=== PATIENT | male | born 1945 | race Caucasian/White ===

== ENCOUNTER → 2019-12-10 14:36 | Outpatient (CLI) | payer MEDICARE, SELFPAY ==
[2019-12-10 15:09] LABS: Chol/HDL Ratio 3.3 (1-3.5); Cholesterol 150 mg/dl (140-200); HDL Cholesterol 46 mg/dl (40-60); Triglycerides 99 mg/dl (30-150); VLDL Cholesterol 20 mg/dL (0-40)
[2019-12-10 15:20] LABS: Direct LDL Cholesterol 94.97 mg/dL (100-129)
[2019-12-10 15:40] LABS: Basophils # 0.1 K/mm3 (0-0.2); Basophils % 0.8 % (0.1-2.0); Eosinophils # 0.2 K/mm3 (0.0-0.4); Eosinophils % 2.4 % (0.1-12.0); Hematocrit 46.3 % (42.0-52.0); Hemoglobin 15.8 g/dL (14.1-18.0); Lymphocytes # 1.1 K/mm3 (0.7-4.5); Lymphocytes % 15.8 % (10-50); Mean Corpuscular HGB Conc 34.2 g/dL (31.8-35.4); Mean Corpuscular Hemoglobin 32.9 pg (27.0-31.2); Mean Corpuscular Volume 96.2 fl (80-94); Mean Platelet Volume 9.4 fl (7.4-10.4); Monocytes # 0.5 K/mm3 (0.1-1.0); Monocytes % 6.9 % (1.7-9.3); Neutrophils # 5.2 K/mm3 (1.8-7.8); Neutrophils % 74.2 % (37.0-80.0); Platelet Count 188 K/mm3 (142-424); Red Blood Count 4.81 M/mm3 (4.60-6.20); Red Cell Distribution Width 13.9 % (11.5-17.5)
[2019-12-12 10:59] LABS: PSA, Free 0.34 ng/mL; Prostate Specific Ag 0.9 ng/mL (0.0-4.0)
== END ==
PROVIDERS: Visit Provider Family Medicine
DX: E78.5 Hyperlipidemia, unspecified (principal); Z00.00 Encounter for general adult medical examination without abnormal findings; I48.20 Chronic atrial fibrillation, unspecified; L02.818 Cutaneous abscess of other sites; M51.16 Intervertebral disc disorders with radiculopathy, lumbar region; E66.9 Obesity, unspecified; R31.9 Hematuria, unspecified
CPT/HCPCS: 80061; 84153; 84154; 85025

== ENCOUNTER → 2020-11-28 06:29 | Outpatient (CLI) | payer MEDICARE, SELFPAY ==
--- NOTE | 2020-11-28 06:31 | CT_ITS ---
PROCEDURE: CT ABDOMEN PELVIS WO CON CLINICAL INDICATION: RLQ pain COMPARISON: No exams were available for comparison TECHNIQUE: Axial images obtained with sagittal and coronal reformats. All CT scans at the facility use one or more dose reduction, viz: automated exposure control, ma/kV adjustment per patient size (including targeted exams where dose is matched to indication, i.e. head), or iterative reconstruction technique. FINDINGS: LOWER THORAX: Coronary artery calcifications are present. ABDOMEN & PELVIS: Gallstones are noted. No focal liver lesion apparent. The spleen, adrenal glands, and pancreas has an unremarkable appearance. Duodenal diverticulum noted. No renal or ureteral calculus evident. 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 The definite measurements of the aneurysm are difficult to delineate but felt to be approximately [address] angiogram of the renal arteries may confirm this finding. Suspect right parapelvic renal cysts. Bowel interposition is present between the liver and the anterior abdominal wall on the right. No evidence of appendicitis. There is colonic diverticulosis. No evidence of diverticulitis. No intestinal obstruction or free air. There is a small umbilical hernia containing fat. Urinary bladder wall slightly thickened but may be due to nondistention. There are degenerative changes in the lumbar spine. No acute bony anomalies. IMPRESSION: 1. No acute finding. No evidence of appendicitis. 2. Cholelithiasis. 3. 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 angiogram of the renal arteries for confirmation. 4. Colonic diverticulosis. No evidence of diverticulitis. Dictated by: Greg Velazquez MD 11/28/2020 09:47 Greg Velazquez MD in [facility] 11/28/2020 09:47
== END ==
PROVIDERS: PCP Family Medicine; Visit Provider Family Medicine
DX: R10.9 Unspecified abdominal pain (principal)
CPT/HCPCS: 74176

== ENCOUNTER → 2020-12-09 07:17 | Outpatient (CLI) | payer MEDICARE, SELFPAY ==
--- NOTE | 2020-12-09 07:20 | CT_ITS ---
Procedure: CT ANGIO ABDOMEN CLINICAL HISTORY: aneurysm seen on CT Renal artery aneurysm COMPARISON: CT CT ABDOMEN PELVIS WO CON from 11/28/2020 TECHNIQUE: IV Contrast: 100ml Isovue 370 Axial images obtained with sagittal and coronal reformats. All CT scans at the facility use one or more dose reduction, viz: automated exposure control, ma/kV adjustment per patient size (including targeted exams where dose is matched to indication, i.e. head), or iterative reconstruction technique. FINDINGS: There is mild fusiform dilatation the distal aspect of the left main renal artery measuring up to 10 mm in diameter with some minimal atheromatous plaque. No evidence of aortic aneurysm. The right renal artery, celiac artery, and SMA have an unremarkable appearance. The iliac vessels are unremarkable. There is a mild amount of calcific plaque within the abdominal aorta and iliac vessels. There is mild thickening of the right minor fissure with elevation of the right hemidiaphragm. Coronary artery calcifications are present. There are gallstones present. The liver, spleen, adrenal glands, and kidneys have an unremarkable appearance other than the small left renal artery aneurysm. At the junction of the body and tail the pancreas there is a 6 mm hypodensity which may be due to small pancreatic lesion versus partial volume averaging artifact. Suggest 3 month follow-up with pancreatic protocol to confirm stability. No intestinal obstruction or free air. No evidence of appendicitis. There is mild thickening of the urinary bladder wall which could be due to nondistention. Central prostate calcifications are present. The prostate is slightly prominent at 4.5 cm. There is colonic diverticulosis but no evidence of diverticulitis. Small umbilical hernia is present containing fat. There are degenerative changes in the lumbar spine and hips. IMPRESSION: 1. Mild fusiform dilatation of the distal aspect of the left main renal artery at 10 mm. 2. Cholelithiasis. 3. 6 mm hypodensity of the junction of the body and tail the pancreas indeterminate. Suggest 3 month follow-up with pancreatic protocol to confirm stability. 4. Colonic diverticulosis Dictated by: Greg Velazquez MD 12/11/2020 11:16 Greg Velazquez MD in [facility] 12/11/2020 11:16
[2020-12-09 08:07] LABS: Blood Urea Nitrogen 16 mg/dl (9-20); Estimated Glomerular Filt Rate 95 ml/min (>60); GFR (African American) 115 ML/MIN (>60)
== END ==
PROVIDERS: PCP Family Medicine; Visit Provider Family Medicine
DX: I72.2 Aneurysm of renal artery (principal)
CPT/HCPCS: 36415; 74175; 82565; 84520; Q9967

== ENCOUNTER → 2021-09-07 12:50 | Outpatient (CLI) | payer MEDICARE, SELFPAY ==
[2021-09-07 14:55] LABS: Basophils # 0.1 K/mm3 (0-0.2); Basophils % 1.2 % (0.1-2.0); Eosinophils # 0.2 K/mm3 (0.0-0.4); Eosinophils % 4.3 % (0.1-12.0); Hematocrit 48.9 % (42.0-52.0); Hemoglobin 15.9 g/dL (14.1-18.0); Lymphocytes # 1.1 K/mm3 (0.7-4.5); Lymphocytes % 19.7 % (10-50); Mean Corpuscular HGB Conc 32.5 g/dL (31.8-35.4); Mean Corpuscular Hemoglobin 32.6 pg (27.0-31.2); Mean Corpuscular Volume 100.2 fl (80-94); Monocytes # 0.4 K/mm3 (0.1-1.0); Monocytes % 8.1 % (1.7-9.3); Neutrophils # 3.6 K/mm3 (1.8-7.8); Neutrophils % 66.6 % (37.0-80.0); Platelet Count 199 K/mm3 (142-424); Red Blood Count 4.88 M/mm3 (4.60-6.20); Red Cell Distribution Width 13.6 % (11.5-17.5); White Blood Count 5.3 K/mm3 (4.8-10.8)
[2021-09-07 15:50] LABS: Alanine Aminotransferase 12 U/L (12-78); Albumin Level 3.9 g/dl (3.5-5.0); Albumin/Globulin Ratio 1.5 (1.1-1.8); Alkaline Phosphatase 101 U/L (38-126); Anion Gap 12.1 mEq/L (5-15); Aspartate Amino Transferase 20 U/L (17-59); Bilirubin,Total 1.1 mg/dl (0.2-1.3); Blood Urea Nitrogen 17 mg/dl (9-20); Calcium 8.8 mg/dl (8.4-10.2); Carbon Dioxide 23 mmol/L (22.0-30.0); Chloride 106 mmol/L (98-107); Chol/HDL Ratio 3.8 (1-3.5); Cholesterol 156 mg/dl (140-200); Estimated Glomerular Filt Rate 110 ml/min (>60); GFR (African American) 133 ML/MIN (>60); Globulin 2.6 g/dL (1.3-3.2); Glucose 108 mg/dl (74-100); HDL Cholesterol 41 mg/dl (40-60); Potassium 4.1 mmoL/L (3.5-5.1); Sodium 137 mmol/L (136-145); Total Protein,Serum 6.5 g/dl (6.3-8.2); Triglycerides 84 mg/dl (30-150); VLDL Cholesterol 17 mg/dL (0-40)
[2021-09-07 16:02] LABS: Direct LDL Cholesterol 86.71 mg/dL (100-129)
[2021-09-07 16:22] LABS: Prostate Specific Ag Screen 1.4 ng/ml (0.0-4.0); Thyroid Stimulating Hormone 1.23 uIU/mL (0.465-4.68)
== END ==
PROVIDERS: Visit Provider Family Medicine
DX: I48.20 Chronic atrial fibrillation, unspecified (principal); I10 Essential (primary) hypertension; Z12.5 Encounter for screening for malignant neoplasm of prostate; Z00.00 Encounter for general adult medical examination without abnormal findings
CPT/HCPCS: 80053; 80061; 84443; 85025; G0103

== ENCOUNTER → 2021-11-26 13:53 | Outpatient (CLI) | payer MEDICARE, SELFPAY ==
[2021-11-26 13:13] LABS: Adenovirus,PCR Not Detected (NotDetected); Bordetella Pertussis Not Detected (NotDetected); Chlamydophila Pneumoniae, PCR Not Detected (NotDetected); Coronavirus 19, PCR Not Detected (NotDetected); Coronavirus 229E Not Detected (NotDetected); Coronavirus NL63 Not Detected (NotDetected); Coronavirus OC43 Not Detected (NotDetected); Coronovirus HKU1,PCR Not Detected (NotDetected); Human Metapneumovirus Not Detected (NotDetected); Influenza A, PCR Not Detected (NotDetected); Influenza AH1, 2009 Not Detected (NotDetected); Influenza AH1, PCR Not Detected (NotDetected); Influenza AH3,PCR Not Detected (NotDetected); Influenza B, PCR Not Detected (NotDetected); Mycoplasma Pneumoniae, PCR Not Detected (NotDetected); Parainfluenza 1, PCR Not Detected (NotDetected); Parainfluenza 2, PCR Not Detected (NotDetected); Parainfluenza 3, PCR Not Detected (NotDetected); Parainfluenza 4, PCR Not Detected (NotDetected); Respiratory Syncytial Virus Not Detected (NotDetected)
[2021-11-26 18:05] LABS: Rhinovirus/Enterovirus Detected (NotDetected)
== END ==
PROVIDERS: PCP Family Medicine; Visit Provider Family Medicine
DX: R09.81 Nasal congestion (principal); B34.8 Other viral infections of unspecified site; Z20.822 Contact with and (suspected) exposure to COVID-19; J98.8 Other specified respiratory disorders
CPT/HCPCS: 87581; 87632; 87798; C9803; U0003; U0005

== ENCOUNTER → 2022-09-20 17:53 | Outpatient (CLI) | payer MEDICARE, SELFPAY ==
[2022-09-20 18:48] LABS: Basophils # 0.1 K/mm3 (0-0.2); Eosinophils # 0.2 K/mm3 (0.0-0.4); Eosinophils % 3.5 % (0.1-12.0); Hemoglobin 14.6 g/dL (14.1-18.0); Lymphocytes # 1.2 K/mm3 (0.7-4.5); Lymphocytes % 19.6 % (10-50); Mean Corpuscular HGB Conc 31.6 g/dL (31.8-35.4); Mean Corpuscular Hemoglobin 31.2 pg (27.0-31.2); Mean Corpuscular Volume 98.8 fl (80-94); Mean Platelet Volume 8.5 fl (7.4-10.4); Monocytes # 0.5 K/mm3 (0.1-1.0); Monocytes % 8.7 % (1.7-9.3); Neutrophils % 67.3 % (37.0-80.0); Platelet Count 193 K/mm3 (142-424); Red Blood Count 4.66 M/mm3 (4.60-6.20); Red Cell Distribution Width 13.5 % (11.5-17.5); White Blood Count 5.9 K/mm3 (4.8-10.8)
[2022-09-20 19:19] LABS: Chloride 103 mmol/L (98-107); Potassium 3.8 mmoL/L (3.5-5.1); Sodium 138 mmol/L (136-145)
[2022-09-20 19:21] LABS: Alanine Aminotransferase 12 U/L (12-78); Anion Gap 12.8 mEq/L (5-15); Aspartate Amino Transferase 21 U/L (17-59); Blood Urea Nitrogen 18 mg/dl (9-20); Carbon Dioxide 26 mmol/L (22.0-30.0); Estimated Glomerular Filt Rate 82 ml/min (>60); GFR (African American) 100 ML/MIN (>60)
[2022-09-20 19:22] LABS: Albumin Level 3.7 g/dl (3.5-5.0); Albumin/Globulin Ratio 1.5 (1.1-1.8); Alkaline Phosphatase 93 U/L (38-126); Bilirubin,Total 0.7 mg/dl (0.2-1.3); Calcium 8.2 mg/dl (8.4-10.2); Chol/HDL Ratio 3.3 (1-3.5); Cholesterol 140 mg/dl (140-200); Globulin 2.4 g/dL (1.3-3.2); Glucose 85 mg/dl (74-100); HDL Cholesterol 43 mg/dl (40-60); Total Protein,Serum 6.1 g/dl (6.3-8.2); Triglycerides 88 mg/dl (30-150); VLDL Cholesterol 18 mg/dL (0-40)
[2022-09-20 19:49] LABS: Direct LDL Cholesterol 90.06 mg/dL (100-129); Thyroid Stimulating Hormone 0.95 uIU/mL (0.465-4.68)
[2022-09-20 22:25] LABS: Prostate Specific Ag Screen 1.8 ng/ml (0.0-4.0)
== END ==
PROVIDERS: PCP Family Medicine; Visit Provider Family Medicine
DX: E78.5 Hyperlipidemia, unspecified (principal); Z12.5 Encounter for screening for malignant neoplasm of prostate; I48.20 Chronic atrial fibrillation, unspecified
CPT/HCPCS: 80053; 80061; 84443; 85025; G0103

== ENCOUNTER 2023-09-28 18:00 | Outpatient (CLI) | payer MEDICARE, SELFPAY ==
[2023-09-28 18:40] LABS: Basophils # 0.1 K/mm3 (0-0.2); Basophils % 1.2 % (0.1-2.0); Eosinophils # 0.2 K/mm3 (0.0-0.4); Eosinophils % 4.3 % (0.1-12.0); Hematocrit 44.4 % (42.0-52.0); Hemoglobin 14.4 g/dL (14.1-18.0); Lymphocytes # 1.2 K/mm3 (0.7-4.5); Lymphocytes % 23.9 % (10-50); Mean Corpuscular HGB Conc 32.5 g/dL (31.8-35.4); Mean Corpuscular Volume 101.7 fl (80-94); Mean Platelet Volume 9.6 fl (7.4-10.4); Monocytes # 0.5 K/mm3 (0.1-1.0); Monocytes % 9.6 % (1.7-9.3); Neutrophils # 2.9 K/mm3 (1.8-7.8); Neutrophils % 60.9 % (37.0-80.0); Platelet Count 204 K/mm3 (142-424); Red Blood Count 4.37 M/mm3 (4.60-6.20); Red Cell Distribution Width 13.6 % (11.5-17.5); White Blood Count 4.8 K/mm3 (4.8-10.8)
[2023-09-28 19:42] LABS: Hemoglobin A1C 5.7 % (4.0-6.0)
[2023-09-28 20:57] LABS: Alanine Aminotransferase 15 U/L (12-78); Albumin Level 3.5 g/dl (3.5-5.0); Albumin/Globulin Ratio 1.3 (1.1-1.8); Alkaline Phosphatase 103 U/L (38-126); Anion Gap 10.4 mEq/L (5-15); Aspartate Amino Transferase 22 U/L (17-59); Blood Urea Nitrogen 19 mg/dl (9-20); Calcium 8.9 mg/dl (8.4-10.2); Carbon Dioxide 23 mmol/L (22.0-30.0); Chloride 110 mmol/L (98-107); Estimated Glomerular Filt Rate 73 ml/min (>60); GFR (African American) 88 ML/MIN (>60); Globulin 2.6 g/dL (1.3-3.2); Glucose 102 mg/dl (74-100); Potassium 4.4 mmoL/L (3.5-5.1); Sodium 139 mmol/L (136-145); Total Protein,Serum 6.1 g/dl (6.3-8.2)
[2023-09-28 21:28] LABS: Prostate Specific Ag Screen 2.9 ng/ml (0.0-4.0); Thyroid Stimulating Hormone 0.91 uIU/mL (0.465-4.68)
[2023-09-30 11:17] LABS: Testosterone,Total 392 ng/dL (264-916)
== END 2023-09-28 23:59 | disposition home or self-care (01) ==
LOC: LAB.DROPOF 09-29 14:09
PROVIDERS: PCP Family Medicine; Visit Provider Family Medicine
DX: I10 Essential (primary) hypertension (principal); Z12.5 Encounter for screening for malignant neoplasm of prostate; R73.03 Prediabetes; I48.91 Unspecified atrial fibrillation
CPT/HCPCS: 80053; 83036; 84403; 84443; 85025; G0103

== ENCOUNTER 2024-07-02 10:45 | Outpatient (CLI) | payer MEDICARE, SELFPAY ==
[2024-07-02 19:20] LABS: Albumin Level 3.5 g/dl (3.5-5.0); Chloride 105 mmol/L (98-107); Sodium 134 mmol/L (136-145)
[2024-07-02 19:21] LABS: Potassium 4.5 mmoL/L (3.5-5.1)
[2024-07-02 19:23] LABS: Alanine Aminotransferase 18 U/L (12-78); Albumin/Globulin Ratio 1.3 (1.1-1.8); Alkaline Phosphatase 110 U/L (38-126); Anion Gap 8.5 mEq/L (5-15); Aspartate Amino Transferase 24 U/L (17-59); Bilirubin,Total 0.8 mg/dl (0.2-1.3); Blood Urea Nitrogen 19 mg/dl (9-20); Carbon Dioxide 25 mmol/L (22.0-30.0); Cholesterol 139 mg/dl (140-200); Estimated Glomerular Filt Rate 94 ml/min (>60); GFR (African American) 113 ML/MIN (>60); Globulin 2.6 g/dL (1.3-3.2); Total Protein,Serum 6.1 g/dl (6.3-8.2); Triglycerides 126 mg/dl (30-150); VLDL Cholesterol 25 mg/dL (0-40)
[2024-07-02 19:24] LABS: Calcium 8.8 mg/dl (8.4-10.2); Chol/HDL Ratio 4.2 (1-3.5); Glucose 105 mg/dl (74-100); HDL Cholesterol 33 mg/dl (40-60)
[2024-07-02 19:39] LABS: Basophils # 0.1 K/mm3 (0-0.2); Eosinophils # 0.2 K/mm3 (0.0-0.4); Eosinophils % 4.6 % (0.1-12.0); Hematocrit 43.3 % (42.0-52.0); Hemoglobin 14.5 g/dL (14.1-18.0); Lymphocytes # 1.1 K/mm3 (0.7-4.5); Lymphocytes % 20.2 % (10-50); Mean Corpuscular HGB Conc 33.5 g/dL (31.8-35.4); Mean Corpuscular Hemoglobin 32.4 pg (27.0-31.2); Mean Corpuscular Volume 96.9 fl (80-94); Monocytes # 0.6 K/mm3 (0.1-1.0); Monocytes % 10.8 % (1.7-9.3); Neutrophils # 3.3 K/mm3 (1.8-7.8); Platelet Count 199 K/mm3 (142-424); Red Blood Count 4.47 M/mm3 (4.60-6.20); Red Cell Distribution Width 13.2 % (11.5-17.5); White Blood Count 5.2 K/mm3 (4.8-10.8)
[2024-07-02 19:46] LABS: Direct LDL Cholesterol 82.84 mg/dL (100-129)
== END 2024-07-02 23:59 | disposition home or self-care (01) ==
LOC: LAB.DROPOF 07-04 08:32
PROVIDERS: PCP Family Medicine; Visit Provider Family Medicine
DX: I48.91 Unspecified atrial fibrillation (principal); I10 Essential (primary) hypertension
CPT/HCPCS: 80053; 80061; 85025

== ENCOUNTER 2024-11-29 09:23 | Outpatient (CLI) | payer MEDICARE, SELFPAY ==
--- OUTSIDE RECORDS SUMMARY | 2024-10-08 13:15 | XMS_ITS | Encounter Summary ---
Author Organization [facility] Address [address] [place] [id number] Care Team Providers Care Accounting Manager Controller Name Role Phone Lance Kang MD Primary Care Provider [phone] Reason for Visit * Reason Comments Injury Encounter Details Date Type Department Care Team (Late st Contact Info) Description 10/08/2024 1:15 PM EDT Office Visit [address] [address] Handy Marie MD [address] [place] [address] Primary osteoarthritis of both knees (Primary Dx) Social History Tobacco Use Types Packs/Day Years Used Date Smoking Tobacco: Never Passive Smoke Exposure: Never Smokeless Tobacco: Never Alcohol Use Standard Drinks/Week Comments Not Currently 0 (1 standard drink = 0.6 oz pur e alcohol) rare Sexually Active Control Partners Comments Yes Female Sex and Gender Information Value Date Recorded Sex Assigned at Not on file Legal Sex Male 12:22 AM EDT Gender Identity Not on file Sexual Orientation Not on file documented as of this encounter Ordered Prescriptions Prescription Sig Dispense Quantity Refills Last Filled Start Date End Date diclofenac (VOLTAREN) 1 % Top Gel Apply 4 g topically 2 times daily. Apply 2 grams topically twice daily as needed 1 Each 2 10/08/2024 documented in this encounter Progress Notes * Handy Marie MD - 10/08/2024 1:15 PM EDT Images from the original note were not included. [address] [phone] [place], [place] [phone] [place], [place] Eber Malloy 1945 Chief Complaint Patient presents with Left Knee - Injury Subjective: Eber Malloy is a 79 y.o. male is presenting today for repeat evaluation of Left > Right knee OA Here for recheck Follows with [facility] for injections Reports relief with previous cortisone injection of the knee on last OV 06-29-22. He had Durolane 08-04-22 and it has helped. He is going on vacation and wants to be able to walk. Relief has worn off somewhat and pain has returned, especially in the morning with stiffness and with increased physical activity Interval History 10/08/2024 Last injection in 11/2022 helped until recently Some discomfort in his knees Worse on the inside He does endorse bilateral thigh numbness occasionally no bowel/bladder changes Follows with Dr. Lora for his back Objective: Review of Systems Constitutional: Negative. Respiratory: Negative. Cardiovascular: Negative. Gastrointestinal: Negative. Musculoskeletal: Positive for joint pain. Skin: Negative. There is no height or weight on file to calculate BMI. On physical examination the patient is alert and oriented x3. Appropriate mood for the conversation. Well-developed and well-nourished in appearance. Gait examination reveals no obvious abnormalities. Skin of bilateral upper and lower extremities with no obvious rash or lesions. Motor control intact of the bilateral upper and lower extremities. No evidence of obvious lymphedema of bilateral lowerextremities. Respiratory rate is normal by clinical examination. Pulse rate is normal by peripheral pulse examination. Examination of the left knee shows that it is stable to varus/valgus stressing. Normal anterior/posterior drawer testing. Normal Mitzi testing. Normal Allyson testing. There is tenderness to palpation over the medial joint line, as well as the patellofemoral joint. The skin is intact. Imaging: X-rays reviewed today of the bilateral knee show osteoarthritic degenerative change with joint space narrowing, subchondral sclerosis and osteophyte formation. There are no acute findings noted in these films. Kellgren-Etian Grade 4 Assessment and Plan: Diagnoses and all orders for this visit: Primary osteoarthritis of both knees - Large Joint Injection/Arthrocentesis: bilateral knee Other orders - diclofenac (VOLTAREN) 1 % Top Gel; Apply 4 g topically 2 times daily. Apply 2 grams topically twice daily as needed Dispense: 1 Each; Refill: 2 PLAN: Recommended to continue conservative management Discussed options Bilateral knee arthritis Conservative treatments still helping We will perform a bilateral knee steroid injection today Topical Voltaren Prescription Today May benefit fpc from a TKA, will remain conservative for now * Alison Pierre MA - 10/08/2024 1:15 PM EDTAssociated Order(s): Large Joint Injection/Arthrocentesis: bilateral knee Post-Procedure Diagnose(s): Primary osteoarthritis of both knees Large Joint Injection/Arthrocentesis: bilateral knee on 10/08/2024 1:15 PM Indications: pain Details: 22 G needle, superolateral approach Medications (Right): 40 mg triamcinolone acetonide 40 mg/mL; 2 mL BUPivacaine HCl 0.5 % (5 mg/mL) Medications (Left): 40 mg triamcinolone acetonide 40 mg/mL; 2 mL BUPivacaine HCl 0.5 % (5 mg/mL) Outcome: tolerated well, no immediate complications Procedure, treatment alternatives, risks and benefits explained, specific risks discussed. Consent was given by the patient. Patient was prepped and draped in the usual sterile fashion. documented in this encounter Plan of Treatment Upcoming Encounters Date Type Department Care Team (Late st Contact Info) Description 10/17/2025 10:10 AM EDT Office Visit [facility] [address] [phone] Felipe Marie MD [address] [place] [address] DR [place] [id number] documented as of this encounter Procedures Procedure Name Priority Date/Time Associated Diagnosis Comments SD ARTHROCENTESIS LARGE JOINT W/O US BILATERAL Routine 10/08/2024 1:15 PM EDT Primary osteoarthritis of both knees documented in this encounter Results * SD ARTHROCENTESIS LARGE JOINT W/O US BILATERAL (10/08/2024 1:15 PM EDT) Narrative [facility] - 10/08/2024 1:15 PM EDT Alison Pierre MA 10/16/2024 8:54 AM Large Joint Injection/Arthrocentesis: bilateral knee on 10/08/2024 1:15 PM Indications: pain Details: 22 G needle, superolateral approach Medications (Right): 40 mg triamcinolone acetonide 40 mg/mL; 2 mL BUPivacaine HCl 0.5 % (5 mg/mL) Medications (Left): 40 mg triamcinolone acetonide 40 mg/mL; 2 mL BUPivacaine HCl 0.5 % (5 mg/mL) Outcome: tolerated well, no immediate complications Procedure, treatment alternatives, risks and benefits explained, specific risks discussed. Consent was given by the patient. Patient was prepped and draped in the usual sterile fashion. Handy Marie MD PROCEDURE/MINOR SURG ICAL ORDERABLES Final Result [facility] documented in this encounter Visit Diagnoses Diagnosis Primary osteoarthritis of both knees- Primary Primary localized osteoarthrosis, lower leg documented in this encounter Administered Medications Inactive Administered Medications - up to 1 most recent administrations Medication Order MAR Action Action Date Dose Rate Site BUPivacaine HCl (MARCAINE/SENSORCAINE) 0.5 % (5 mg/mL) injection 2 mL 2 mL, Intra-articular, ONCE PRN, 1 dose, Starting on Tue10/08/24 at 1315, Until Tue10/08/24 at 1315, Dx: 1. Primary osteoarthritis of both kneesIndications:Primary osteoarthritis of both knees Given 10/08/2024 1:15 PM EDT 2 mL Left Knee BUPivacaine HCl (MARCAINE/SENSORCAINE) 0.5 % (5 mg/mL) injection 2 mL 2 mL, Intra-articular, ONCE PRN, 1 dose, Starting on Tue10/08/24 at 1315, Until Tue10/08/24 at 1315, Dx: 1. Primary osteoarthritis of both kneesIndications:Primary osteoarthritis of both knees Given 10/08/2024 1:15 PM EDT 2 mL Right Knee triamcinolone acetonide (KENALOG-40) injection 40 mg 40 mg, Intra-articular, ONCE PRN, 1 dose, Starting on Tue10/08/24 at 1315, Until Tue10/08/24 at 1315, Dx: 1. Primary osteoarthritis of both kneesIndications:Primary osteoarthritis of both knees Given 10/08/2024 1:15 PM EDT 40 mg Left Knee triamcinolone acetonide (KENALOG-40) injection 40 mg 40 mg, Intra-articular, ONCE PRN, 1 dose, Starting on Tue10/08/24 at 1315, Until Tue10/08/24 at 1315, Dx: 1. Primary osteoarthritis of both kneesIndications:Primary osteoarthritis of both knees Given 10/08/2024 1:15 PM EDT 40 mg Right Knee documented in this encounter Additional Health Concerns Assessment Noted Time A fall risk assessment has been complete d for the patient 08/06/2019 9:44 AM EST documented as of this encounter Care Teams Accounting Manager Controller Relationship Specialty Start Date End Date Lance Kang MD PCP - General 04/25/10 documented as of this encounter
--- OUTSIDE RECORDS SUMMARY | 2024-11-13 13:20 | XMS_ITS | Encounter Summary ---
Author Organization [place] [address] Care Team Providers Care Kiln Drawer Name Role Phone Lance Kang MD Primary Care Provider [phone] Reason for Referral * Holter Monitor (Routine) - Pending Review Specialty Diagnoses / Procedures Referred By Contac t Referred To Contact Radiology Diagnoses Chronic atrial fibrillation (HCC) Primary hypertension Mixed hyperlipidemia Procedures [facility] HOLTER MONITOR RECORDING AND ANALYSIS Allyssa Marie MD [address] [place] [address] [place] [address] Phone: tel: fax: Referral ID Status Reason Start Date Expiration Date V isits Requested Visits Authorized [id number] Pending Review 11/13/2024 11/14/2026 1 1 Reason for Visit * Reason Comments [facility] afib. Encounter Details Date Type Department Care Team (Latest Contact Info) Description 11/13/2024 1:20 PM EDT Office Visit [facility] [address] [address] Allyssa Marie MD [address] [place] [address] [place] [address] Chronic atrial fibrillation (HCC) (Primary Dx); Primary hypertension; Mixed hyperlipidemia Social History Tobacco Use Types Packs/Day Years Used Date Smoking Tobacco: Never Passive Smoke Exposure: Never Smokeless Tobacco: Never Tobacco Cessation:Counseling Given: Not Answered Alcohol Use Standard Drinks/Week Comments Not Currently 0 (1 standard drink = 0.6 oz pur e alcohol) rare Sexually Active Control Partners Comments Yes Female Sex and Gender Information Value Date Recorded Sex Assigned at Not on file Legal Sex Male 12:22 AM EDT Gender Identity Not on file Sexual Orientation Not on file documented as of this encounter Last Filed Vital Signs Vital Sign Reading Time Taken Comments Blood Pressure 118/84 11/13/2024 1:04 PM EDT Pulse 104 11/13/2024 1:04 PM EDT Temperature - - Respiratory Rate - - Oxygen Saturation - - Inhaled Oxygen Concentration - - Weight 104.2 kg (229 lb 12.8 oz) 11/13/2024 1:04 PM EDT Height 175.3 cm (5' 9 ) 11/13/2024 1:04 PM EDT Body Mass Index 33.94 11/13/2024 1:04 PM EDT documented in this encounter Progress Notes * Allyssa Marie MD - 11/13/2024 1:20 PM EDT Chief Complaint Patient presents with Atrial Fibrillation Former Dr. Ramos patient. Dr. Barney referred for afib. HPI: Eber Malloy is here for regularly scheduled cardiology followup. The patient reports feeling well without particular complaints today. REVIEW OF SYSTEMS: NEGATIVE FOR: Chest pain Dyspnea Palpitations Dizziness Syncope Edema POSITIVE FOR: none All other review of systems are negative. PAST MEDICAL HISTORY: Past Medical History: Diagnosis Date Atrial fibrillation (HCC) Cardiac dysrhythmia A fib Chest pain 2 prior negative stress tests Heartburn seldom, happens every couple months, no meds taken Hyperlipidemia Hypertension Irregular heart beat PAST SURGICAL HISTORY: Past Surgical History: Procedure Laterality Date APPENDECTOMY CHOLECYSTECTOMY, LAPAROSCOPIC N/A 04/11/2021 Surgeon: Lauren Horton MD; Location: [facility]; Service: General HEMORRHOID SURGERY LAPAROSCOPIC APPENDECTOMY N/A 04/11/2021 laparoscopic appendectomy laparoscopic cholecystectomy; Surgeon: Lauren Horton MD; Location: [facility]; Service: General ALLERGIES: No Known Allergies MEDICATIONS: Current Outpatient Medications: atorvastatin (LIPITOR) 10 mg Oral Tablet, Take 10 mg by mouth nightly., Disp: , Rfl: diclofenac (VOLTAREN) 1 % Top Gel, Apply 4 g topically 2 times daily. Apply 2 grams topically twicedaily as needed, Disp: 1 Each, Rfl: 2 diclofenac (VOLTAREN) 1 % Top Gel, APPLY 2 GRAMS TOPICALLY TWICE DAILY NEEDED, Disp: 100 g, Rfl:2 dilTIAZem 180 mg Oral Capsule, Sust. Release 24 hr, Take 1 Capsule by mouth nightly., Disp: 10 Capsule, Rfl: 0 ELIQUIS 5 mg Oral Tablet, TAKE 1 TABLET BY MOUTH TWICE DAILY, Disp: 60 Tablet, Rfl: 6 fluticasone propionate (FLONASE NASL), by Nasal route., Disp: , Rfl: levocetirizine (XYZAL) 5 mg Oral Tablet, Take 5 mg by mouth as needed for Allergies., Disp: , Rfl: losartan (COZAAR) 100 mg Oral Tablet, Take 100 mg by mouth nightly., Disp: , Rfl: sildenafiL (VIAGRA) 100 mg Oral Tablet, TAKE 1 TABLET BY MOUTH NEEDED FOR SEXUAL ACTIVITY. ADMINISTER 30 MINUTES TO 4 HOURS BEFORE ACTIVITY, Disp: , Rfl: cetirizine (ZYRTEC) 10 mg Oral Tablet, Take 10 mg by mouth daily. (Patient not taking: Reported on 11/13/2024), Disp: , Rfl: traMADoL (ULTRAM) 50 mg Oral Tablet, Take 50 mg by mouth 3 times daily as needed. for pain (Patientnot taking: Reported on 11/13/2024), Disp: , Rfl: SOCIAL HISTORY: Social History Socioeconomic History Marital status: Spouse name: Not on file Number of children: Not on file Years of education: Not on file Highest education level: Not on file Occupational History Not on file Tobacco Use Smoking status: Never Passive exposure: Never Smokeless tobacco: Never Vaping Use Vaping status: Never Used Substance and Sexual Activity Alcohol use: Not Currently Comment: rare Drug use: No Sexual activity: Yes Partners: Female Other Topics Concern Not on file Social History Narrative Not on file Social Drivers of Health Financial Resource Strain: Not on file Food Insecurity: Not on file Transportation Needs: Not on file Physical Activity: Not on file Stress: Not on file Social Connections: Not on file Intimate Partner Violence: Not on file Housing Stability: Not on file FAMILY HISTORY: Family History Problem Relation Age of Onset Heart Disease Mother Heart Disease Father [address] [place] age 38; age 76 d/t stroke Stroke Father High Blood Pressure Father PHYSICAL EXAMINATION: Vitals: 11/13/24 1304 BP: 118/84 Pulse: 104 Body mass index is 33.94 kg/m??. CONSTITUTIONAL: Vital signs are noted No apparent distress Alert and oriented EYES: Gaze is conjugate Ptosis is absent EARS, NOSE, MOUTH, THROAT: Oropharynx is clear Nose is midline NECK: Thyromegaly is absent Trachea is midline RESPIRATORY: Respiratory effort is normal Wheezes are absent Rales are absent Rhonchi are absent CARDIOVASCULAR: Heart rate is noted above Rhythm is regular Murmurs are absent Rubs are absent S1 and S2 normal S3 or S4 are absent Pulses are normal Jugular venous pressure is normal Edema is absent Carotid Bruits are absent GASTROINTESTINAL: Bowel sounds are normal Hepatomegaly is absent Spleenomegaly is absent Abdomen is soft and non tender MUSCULOSKELETAL: Clubbing is absent Cyanosis is absent Gait is normal SKIN: Rashes are visually absent Turgor is normal Warm and dry NEUROLOGICAL: Cranial nerves are grossly intact Speech is normal PSYCHIATRIC: Mood is normal Affect is normal LABORATORY AND STUDIES: All pertinent study and laboratory results have been personally reviewed including results from last coronary angiogram, stress test, echocardiogram and/or carotid ultrasound if pertinent to this visit. SELECTIVE LAST BLOOD WORK: No results found for: CHOLESTEROL , HDL , LDLCALC , TRIG Lab Results Component Value Date INR 1.41 (H) 06/17/2015 Lab Results Component Value Date WBC 10.5 (H) 04/12/2021 HGB 14.1 04/12/2021 HCT 41.2 04/12/2021 MCV 97.4 04/12/2021 PLT 171 04/12/2021 No results found for: HGBA1C Lab Results Component Value Date NA 137 04/12/2021 K 4.9 04/12/2021 BUN 13 04/12/2021 CALCIUM 8.5 (L) 04/12/2021 CL 102 04/12/2021 CO2 25 04/12/2021 CREATININE 0.89 04/12/2021 GLU 145 (H) 04/12/2021 Lab Results Component Value Date ALT 8 04/11/2021 AST 10 04/11/2021 ALKPHOS 101 04/11/2021 No results found for: TSH ECG RESULT IF DONE: No results found for this visit on 11/13/24. LABS ORDERS THIS VISIT: Orders Placed This Encounter Procedures POCT EKG IMAGING ORDERS THIS VISIT: None MEDICINE CHANGES THIS VISIT: Requested Prescriptions No prescriptions requested or ordered in this encounter There are no discontinued medications. 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 Lumbar pain 07/28/2022 Primary osteoarthritis of left knee 03/30/2022 Acute appendicitis with perforation and generalized peritonitis, without abscess or gangrene 04/11/2021 Calculus of gallbladder with chronic cholecystitis without obstruction 03/23/2021 Added automatically from request for surgery [id number] AF (atrial fibrillation) (HCC) 09/06/2013 HTN (hypertension) 05/03/2013 HLD (hyperlipidemia) 05/03/2013 Family history of premature CAD 05/03/2013 Chest pain 06/11/2012 ASSESSMENT AND PLAN: Says very active No falls No bleeding Toleratring eliquis No cps nopressure No new sob Able to walk up flight steps railing No usa no chf Htn controlled Chronic afib Elevated cholestoerl EKG today october 2024 afib Echo october 2023 ef 50-55 mild mr Prior cardiomyopathy Check holter 24hours. To check hr. 2018 minimal lis cath 2018. Prefers to no have stress at present documented in this encounter Plan of Treatment Upcoming Encounters Date Type Department Care Team (Late st Contact Info) Description 10/17/2025 10:10 AM EDT Office Visit [facility] [address] [address] Allyssa Marie MD [address] [place] [address] DR MACKENZIE [facility], [place] [address] documented as of this encounter Procedures Procedure Name Priority Date/Time Associated Diagnosis Comments POCT EKG Routine 11/13/2024 1:07 PM EDT Chronic atrial fibrillation (HCC) documented in this encounter Results * HOLTER MONITOR RECORDING AND ANALYSIS (11/19/2024 10:04 AM EDT) Anatomical Region Laterality Modality Holter/Event Mon itoring 11/22/2024 4:06 AM EDT Impressions 11/22/2024 8:00 AM EDT [facility] Test Date: 2024-11-22 Pat Name: [facility] Department: DEPID Room: Gender: Male Nurse Auditor: : 1945 Requested By: ALLYSSA Venegas Order Number: [id number] Nelly MD: Allyssa Marie MD Interpretive Statements Machine Brusher Date: 11/19/2024 Referring Provider: Dr. Allyssa Marie MD Patient was monitored for 24 hours. INDICATIONS: Chronic Atrial Fibrillation, Unspecified CONCLUSION: Patient monitored for 1d, analyzable time was 21h 59min starting on 11/19/2024 10:03 am. Primary rhythm was Atrial Fibrillation / Flutter. Average heart rate was 84 bpm, Minimum heart rate was 64 bpm to 142 bpm Atrial Fibrillation or Flutter: [place] was 100 %, Pause: 1 event(s), longest pause 9 ms on :28:25 pm PVC(s): [place] was 0.08 %, 86 total PVC(s), 3 disparate morphologies Electronically Signed On 11-22-2024 08:00:01 EDT by Allyssa Marie MD Narrative Procedure Note Allyssa Marie MD - 11/22/2024 IMPRESSION [facility] Test Date: 2024-11-22 Pat Name: [facility] Department: DEPIL Room: Gender: Male Nurse Auditor: : 1945 Requested By: ALLYSSA JOHNSTON Order Number: [id number] Nelly BURGESS: Allyssa Marie MD Interpretive Statements Machine Brusher Date: 11/19/2024 Referring Provider: Dr. Allyssa Marie MD Patient was monitored for 24 hours. INDICATIONS: Chronic Atrial Fibrillation, Unspecified CONCLUSION: Patient monitored for 1d, analyzable time was 21h 59min starting on 11/19/2024 10:03 am. Primary rhythm was Atrial Fibrillation / Flutter. Average heart rate was84 bpm, Minimum heart rate was 64 bpm to 142 bpm Atrial Fibrillation or Flutter: [place] was 100 %, Pause: 1 event(s), longest pause 2029 ms on :28:25 pm PVC(s): [place] was 0.08 %, 86 total PVC(s), 3 disparate morphologies Electronically Signed On 11-22-2024 08:00:01 EDT by Allyssa Marie MD us Allyssa Marie MD IMG HOLTER MONITOR ORDER CONG Final Result * POCT EKG (11/13/2024 1:07 PM EDT) 11/13/2024 1:07 PM EDT Impressions [facility] - 11/13/2024 1:07 PM EDT Atrial fibrillation ABNORMAL RHYTHM us Allyssa Marie MD POINT OF CARE CARDIOLOGY Final Result [facility] documented in this encounter Visit Diagnoses Diagnosis Chronic atrial fibrillation (HCC)- Primary Atrial fibrillation Primary hypertension Unspecified essential hypertension Mixed hyperlipidemia Chronic atrial fibrillation (HCC) Atrial fibrillation Primary hypertension Unspecified essential hypertension Mixed hyperlipidemia documented in this encounter Historical Medications * This list may reflect changes made after this encounter. sildenafiL (VIAGRA) 100 mg Oral Tablet TAKE 1 TABLET BY MOUTH NEEDED FOR SEXUAL ACTIVITY. ADMINISTER 30 MINUTES TO 4 HOURS BEFORE ACTIVITY 10/04/2024 fluticasone propionate (FLONASE NASL) by Nasal route. levocetirizine (XYZAL) 5 mg Oral Tablet Take 5 mg by mouth as needed for Allergies. added in this encounter Additional Health Concerns Assessment Noted Time A fall risk assessment has been complete d for the patient 08/06/2019 9:44 AM EST documented as of this encounter Care Teams Kiln Drawer Relationship Specialty Start Date End Date Lance Kang MD PCP - General 04/25/10 documented as of this encounter
--- OUTSIDE RECORDS SUMMARY | 2024-11-19 09:51 | XMS_ITS | Encounter Summary ---
Author Organization [place] [address] Care Team Providers Care Ux Manager Name Role Phone Lance Kang MD Primary Care Provider [phone] Reason for Referral * Holter Monitor (Routine) - Pending Review Specialty Diagnoses / Procedures Referred By Contac t Referred To Contact Radiology Diagnoses Chronic atrial fibrillation (HCC) Primary hypertension Mixed hyperlipidemia Procedures HOLTER MONITOR RECORDING AND ANALYSIS Allyssa Marie MD [address] [place] [address] [place] [address] Phone: tel: fax: Referral ID Status Reason Start Date Expiration Date V isits Requested Visits Authorized [id number] Pending Review 11/13/2024 11/14/2026 1 1 Reason for Visit * Holter Monitor (Routine) - Pending Review Specialty Diagnoses / Procedures Referred By Contac t Referred To Contact Radiology Diagnoses Chronic atrial fibrillation (HCC) Primary hypertension Mixed hyperlipidemia Procedures HOLTER MONITOR RECORDING AND ANALYSIS Allyssa Marie MD [address] [place] [address] [place] [address] Phone: tel: fax: Referral ID Status Reason Start Date Expiration Date V isits Requested Visits Authorized [id number] Pending Review 11/13/2024 11/14/2026 1 1 Encounter Details Date Type Department Care Team (Latest Contact Info) Description 11/19/2024 9:51 AM EDT - 11/19/2024 11:59 PM EDT Hospital Encounter [facility] [address] [place] [address] [address] [place] [address] Allyssa Marie MD [address] [place] [address] DR MACKENZ[address] [facility], [place] [address] Chronic atrial fibrillation (HCC); Primary hypertension; Mixed hyperlipidemia Discharge Disposition: Home or Self Care Social History Tobacco Use Types Packs/Day Years [...] on file documented as of this encounter Medications at Time of Discharge atorvastatin (LIPITOR) 10 mg Oral Tablet Take 10 mg by mouth nightly. cetirizine (ZYRTEC) 10 mg Oral Tablet Take 10 mg by mouth daily. 02/02/2022 diclofenac (VOLTAREN) 1 % Top Gel Apply 4 g topically 2 times daily. Apply 2 grams topically twice daily as needed 1 Each 2 10/08/2024 diclofenac (VOLTAREN) 1 % Top GelIndications:Prim lora osteoarthritis of left knee APPLY 2 GRAMS TOPICALLY TWICE DAILY NEEDED 100 g 2 10/21/2022 ELIQUIS 5 mg Oral Tablet TAKE 1 TABLET BY MOUTH TWICE DAILY 60 Tablet 6 04/23/2021 fluticasone propionate (FLONASE NASL) by Nasal route. levocetirizine (XYZAL) 5 mg Oral Tablet Take 5 mg by mouth as needed for Allergies. sildenafiL (VIAGRA) 100 mg Oral Tablet TAKE 1 TABLET BY MOUTH NEEDED FOR SEXUAL ACTIVITY. ADMINISTER 30 MINUTES TO 4 HOURS BEFORE ACTIVITY 10/04/2024 traMADoL (ULTRAM) 50 mg Oral Tablet Take 50 mg by mouth 3 times daily as needed. for pain 02/19/2022 documented as of this encounter Discharge Disposition Disposition Code Departure Means Destination Home or Self Care documented in this encounter Plan of Treatment Upcoming Encounters Date Type Department Care Team (Late st Contact Info) Description 10/17/2025 10:10 AM EDT Office Visit [facility] [place] [address] [place] [phone] Allyssa Mraie MD [address] [place] [address] [address] [place], [place] [id number] documented as of this encounter Procedures Procedure Name Priority Date/Time Associated Diagnosis Comments HOLTER MONITOR RECORDING AND ANALYSIS Routine 11/19/2024 10:04 AM EDT Chronic atrial fibrillation (HCC) Primary hypertension Mixed hyperlipidemia documented in this encounter Results * HOLTER MONITOR RECORDING AND ANALYSIS (11/19/2024 10:04 AM EDT) Anatomical Region Laterality Modality Holter/Event Mon itoring 11/22/2024 4:06 AM EDT Impressions 11/22/2024 8:00 AM EDT [facility] Test Date: 2024-11-22 Pat Name: [facility] Department: DEPID Room: Gender: Male Powder Blender And Pourer: : 1945 Requested By: ALLYSSA Venegas Order Number: [id number] Reading MD: Allyssa Marie MD Interpretive Statements Director Hedis Date: 11/19/2024 Referring Provider: Dr. Allyssa Marie MD Patient was monitored for 24 hours. INDICATIONS: Chronic Atrial Fibrillation, Unspecified CONCLUSION: Patient monitored for 1d, analyzable time was 21h 59min starting on 11/19/2024 10:03 am. Primary rhythm was Atrial Fibrillation / Flutter. Average heart rate was 84 bpm, Minimum heart rate was 64 bpm to 142 bpm Atrial Fibrillation or Flutter: [place] was 100 %, Pause: 1 event(s), longest pause 2028 ms on :28:25 pm PVC(s): [place] was 0.08 %, 86 total PVC(s), 3 disparate morphologies Electronically Signed On 11-22-2024 08:00:01 EDT by Allyssa Marie MD Narrative Procedure Note Allyssa Marie MD - 11/22/2024 IMPRESSION [facility] Test Date: 2024-11-22 Pat Name: [facility] Department: DEPID Room: Gender: Male Powder Blender And Pourer: : 1945 Requested By: ALLYSSA JOHNSTON Order Number: [id number] Nelly MD: Allyssa Marie MD Interpretive Statements Director Hedis Date: 11/19/2024 Referring Provider: Dr. Allyssa Marie MD Patient was monitored for 24 hours. INDICATIONS: Chronic Atrial Fibrillation, Unspecified CONCLUSION: Patient monitored for 1d, analyzable time was 21h 59min starting on 11/19/2024 10:03 am. Primary rhythm was Atrial Fibrillation / Flutter. Average heart rate was84 bpm, Minimum heart rate was 64 bpm to 142 bpm Atrial Fibrillation or Flutter: [place] was 100 %, Pause: 1 event(s), longest pause 2028 ms on Day :28:25 pm PVC(s): [place] was 0.08 %, 86 total PVC(s), 3 disparate morphologies Electronically Signed On 11-22-2024 08:00:01 EDT by Allyssa Marie MD us Allyssa Marie MD IMG HOLTER MONITOR ORDER CONG Final Result documented in this encounter Visit Diagnoses Diagnosis Chronic atrial fibrillation (HCC) Atrial fibrillation Primary hypertension Unspecified essential hypertension Mixed hyperlipidemia documented in this encounter Additional Health Concerns Assessment Noted Time A fall risk assessment has been complete d for the patient 08/06/2019 9:44 AM EST documented as of this encounter Care Teams Ux Manager Relationship Specialty Start Date End Date Lance Kang MD PCP - General 04/25/10 documented as of this encounter
[2024-11-29 19:49] LABS: Alanine Aminotransferase 12 U/L (12-78); Albumin Level 3.6 g/dl (3.5-5.0); Albumin/Globulin Ratio 1.5 (1.1-1.8); Alkaline Phosphatase 99 U/L (38-126); Anion Gap 6.1 mEq/L (5-15); Aspartate Amino Transferase 20 U/L (17-59); Bilirubin,Total 1.1 mg/dl (0.2-1.3); Blood Urea Nitrogen 19 mg/dl (9-20); Calcium 8.7 mg/dl (8.4-10.2); Carbon Dioxide 29 mmol/L (22.0-30.0); Chloride 107 mmol/L (98-107); Estimated Glomerular Filt Rate 94 ml/min (>60); GFR (African American) 113 ML/MIN (>60); Globulin 2.4 g/dL (1.3-3.2); Glucose 96 mg/dl (74-100); Potassium 4.1 mmoL/L (3.5-5.1); Sodium 138 mmol/L (136-145)
[2024-11-29 20:14] LABS: Prostate Specific Ag Screen 1.2 ng/ml (0.0-4.0)
--- OUTSIDE RECORDS SUMMARY | 2024-11-30 23:14 | XMS_ITS | Encounter Summary ---
Author Organization [facility] Address [address] [place] [address] Care Team Providers Care Cable Stretcher And Tester Name Role Phone Unavailable Primary Care Provider Unavailabl e Source Comments This information has been disclosed to you from confidential records protectfrom disclosure by state law. You shall make no further disclosure of thisinformation without the specific, written, and informed release of theindividual to whom it pertains, or as otherwise permitted by law. A generalauthorization for the release of medical or other information is not sufficientfor the purposes of the release of HIV test results or diagnoses. [id number] Encounter Details Date Type Department Care Team (Late st Contact Info) Description 10/30/2024 Orders Only [facility] [address] [place] [address] [place] [id number] [address] [place] [phone] Neoplasm of uncertain behavior of skin (Primary Dx) Social History Tobacco Use Types Packs/Day Years Used Date Smoking Tobacco: Never Assessed Sex and Gender Information Value Date Recorded Sex Assigned at Not on file Legal Sex Male 10:42 AM EST Gender Identity Not on file Sexual Orientation Not on file documented as of this encounter Plan of Treatment Not on file documented as of this encounter Procedures Procedure Name Priority Date/Time Associated Diagnosis Comments SKIN / NAIL BIOPSY Routine 10/29/2024 12 :00 AM EDT Neoplasm of uncertain behavior of skin documented in this encounter Results * Skin / nail biopsy (10/29/2024 12:00 AM EDT) 10/29/2024 10/30/2024 Narrative [facility] - 10/29/2024 12:00 AM EDT CASE: [id number] PATIENT: KELLY XAVIER Clinical Impression: A. IN, B. IN Site(s): A. Upper back B. Rt upper back CPT Code(s): 19062 X 2 Diagnosis: A. Upper back Dermal nevus. B. Rt upper back Dermal nevus. Microscopic Exam: A. Upper back Within the dermis there are nests and sheets of benign nevus cells. There is no atypia or inflammation. B. Rt upper back Within the dermis there are nests and sheets of benign nevus cells. There is no atypia or inflammation. Gross Description: A specimen of skin was received measuring: A. 7 x 6 x 1 mm, B. 5 x 5 x 3 mm Final Diagnosis performed by LIV RUSH MD Electronically signed 10/31/2024 11:35:11 AM The Pathologist signing this report is located at [facility], [address] [place] [address], [id number], , CLIA ID: [id number] Leonel Uriostegui MD DERM PROCEDURE ORDERABLES Final Result [facility] documented in this encounter Visit Diagnoses Diagnosis Neoplasm of uncertain behavior of skin- Primary documented in this encounter
--- OUTSIDE RECORDS SUMMARY | 2024-11-30 23:14 | XMS_ITS | Clinical Summary ---
Author Organization [facility] Address [address] [place] [address] Care Team Providers Care Box Icer Name Role Phone Unavailable Primary Care Provider Unavailabl e Source Comments This information has been disclosed to you from confidential records protectedfrom disclosure by state law. You shall make no further disclosure of thisinformation without the specific, written, and informed release of theindividual to whom it pertains, or as otherwise permitted by law. A generalauthorization for the release of medical or other information is not sufficientfor the purposes of therelease of HIV test results or diagnoses. [id number] Encounters Date Type Department Care Team Description 10/30/2024 Orders Only [facility] [address] [address] Leonel Uriostegui MD Neoplasm of uncertain behavior of skin (Primary Dx) from Last 3 Months Social History Tobacco Use Types Packs/Day Years Used Date Smoking Tobacco: Never Assessed Sex and Gender Information Value Date Recorded Sex Assigned at Not on file Legal Sex Male 10:42 AM EST Gender Identity Not on file Sexual Orientation Not on file Plan of Treatment Not on file Procedures Procedure Name Priority Date/Time Associated Diagnosis Comments SKIN / NAIL BIOPSY Routine 10/29/2024 12 :00 AM EDT Neoplasm of uncertain behavior of skin from Last 3 Months Results * Skin / nail biopsy (10/29/2024 12:00 AM EDT) 10/29/2024 10/30/2024 Narrative [facility] - 10/29/2024 12:00 AM EDT CASE: [id number] PATIENT: KELLY XAVIER Clinical Impression: A. IN, B. IN Site(s): A. Upper back B. Rt upper back CPT Code(s): 34339 X 2 Diagnosis: A. Upper back Dermal [...] Pathologist signing this report is located at [facility], [address] [place] [address], [id number], , CLIA ID: [id number] Leonel Uriostegui MD DERM PROCEDURE ORDERABLES Final Result [facility] from Last 3 Months Insurance MEDICARE A AND B [facility]
--- OUTSIDE RECORDS SUMMARY | 2024-11-30 23:14 | XMS_ITS | Encounter Summary ---
Author Organization [place] [address] Care Team Providers Care Rail Car Unloader Name Role Phone Lance Kang MD Primary Care Provider [phone] Reason for Visit * Reason Onset Date Comments Results 11/22/2024 Pt returning [facility] Encounter Details Date Type Department Care Team (Late st Contact Info) Description 11/22/2024 Results [place] [address] Felipe Marie MD [address] [place] [address] HOLTER MONITOR RECORDING AND ANALYSIS Social History Tobacco Use Types Packs/Day Years [...] Refills Last Filled Start Date End Date losartan (COZAAR) 50 mg Oral Tablet Take 1 Tablet by mouth nightly. 90 Tablet 1 11/23/2024 dilTIAZem 240 mg Oral Capsule, Sust. Release 24 hr Take 1 Capsule by mouth nightly. 90 Capsule 1 11/23/2024 documented in this encounter Progress Notes * Shani Chin MA - 11/22/2024 3:22 PM EDT 11/22 completed in another encounter documented in this encounter Miscellaneous Notes * Addendum Note - Sharan Sim RMA - 11/23/2024 11:38 AM EDTAddended by: SHARAN SIM on: 11/23/2024 11:38 AM Modules accepted: Orders * Telephone Encounter - Shani Chin MA - 11/22/2024 3:26 PM EDT ----- Message from Felipe Marie MD sent at 11/22/2024 10:08 AM EDT ----- Increase diltiazem 240mg aday Lower losartan 50mg day Holter hr slightly too high at times 142 so that is why med changes. ----- Message ----- From: Sanchez Concepcion Results In Sent: 11/22/2024 8:00 AM EDT To: Felipe Marie MD * Telephone Encounter - Lizzie Kennedy - 11/22/2024 3:10 PM EDT Pt is returning your call for monitor results documented in this encounter Plan of Treatment Upcoming Encounters Date Type Department Care Team (Late st Contact Info) Description 10/17/2025 10:10 AM EDT Office Visit [facility] [address] [address] Felipe Marie MD [address] [place] [address] DR [place] [address] documented as of this encounter Visit Diagnoses Not on filedocumented in this encounter Discontinued Medications Medication Sig Discontinue Reason Start Date End Da te losartan (COZAAR) 100 mg Oral Tablet Take 100 mg by mouth nightly. Reorder 02/26/2021 11/23/2024 dilTIAZem 180 mg Oral Capsule, Sust. Release 24 hr Take 1 Capsule by mouth nightly. Reorder 04/13/2021 11/23/2024 documented as of this encounter Additional Health Concerns Assessment Noted Time A fall risk assessment has been complete d for the patient 08/06/2019 9:44 AM EST documented as of this encounter Care Teams Rail Car Unloader Relationship Specialty Start Date End Date Lance Kang MD PCP - General 04/25/10 documented as of this encounter
--- OUTSIDE RECORDS SUMMARY | 2024-11-30 23:14 | XMS_ITS | Encounter Summary ---
Author Organization [place] [address] Care Team Providers Care Director Employee Communications Name Role Phone Lance Kang MD Primary Care Provider [phone] Reason for Visit * Reason Onset Date Comments Appointment Needed 10/31/2024 Encounter Details Date Type Department Care Team (Late st Contact Info) Description 10/31/2024 Telephone [facility] [place] [address] [place] [address] [place] [address] Afshan Palomino MD [address] [place] [address] Appointment Needed Social History Tobacco Use Types Packs/Day Years [...] on file documented as of this encounter Miscellaneous Notes * Telephone Encounter - Tobin Jorge MA - 11/02/2024 9:08 AM EDT Letter typed and mailed to patient to call the office back to schedule in [place]. * Telephone Encounter - Tobin Jorge MA - 11/01/2024 9:58 AM EDT Left message for patient to call the office back for appt in [place]. * Telephone Encounter - Tobin Jorge MA - 10/31/2024 2:05 PM EDT Left message for patient to call the office back for a new follow up appointment in [place]. * Telephone Encounter - Tobin Jorge MA - 10/31/2024 1:47 PM EDT ----- Message from Charis sent at 10/31/2024 1:16 PM EDT ----- See note below. Can we get him an appt here in [place]? He cancelled his echo because of this.Thanks, Yen Notice Cancel (pt called to cancel due to no heart dr and he doesn't want to go to [place] . says he refuses to go that far. pt very upset with [facility] heart Doctor issue.) documented in this encounter Plan of Treatment Upcoming Encounters Date Type Department Care Team (Late st Contact Info) Description 10/17/2025 10:10 AM EDT Office Visit [facility] [address] [address] Felipe Marie MD [address] [place] [address] [place] [address] documented as of this encounter Visit Diagnoses Not on filedocumented in this encounter Additional Health Concerns Assessment Noted Time A fall risk assessment has been complete d for the patient 08/06/2019 9:44 AM EST documented as of this encounter Care Teams Director Employee Communications Relationship Specialty Start Date End Date Lance Kang MD PCP - General 04/25/10 documented as of this encounter
--- OUTSIDE RECORDS SUMMARY | 2024-11-30 23:14 | XMS_ITS | Clinical Summary ---
Author Organization [facility] Address [facility] [place] [address] Phone Care Team Providers Care Self Storage Manager Name Role Phone Lance Kang MD Primary Care Provider [phone] Allergies No known active allergies Medications atorvastatin (LIPITOR) 10 mg Oral Tablet Take 10 mg by mouth nightly. Active ELIQUIS 5 mg Oral Tablet TAKE 1 TABLET BY MOUTH TWICE DAILY 60 Tablet 6 1 Active cetirizine (ZYRTEC) 10 mg Oral Tablet Take 10 mg by mouth daily. 2 Active traMADoL (ULTRAM) 50 mg Oral Tablet Take 50 mg by mouth 3 times daily as needed. for pain 2 Active diclofenac (VOLTAREN) 1 % Top GelIndications:Patti jorge osteoarthritis of left knee APPLY 2 GRAMS TOPICALLY TWICE DAILY NEEDED 100 g 2 3 Active diclofenac (VOLTAREN) 1 % Top Gel Apply 4 g topically 2 times daily. Apply 2 grams topically twice daily as needed 1 Each 2 5 Active levocetirizine (XYZAL) 5 mg Oral Tablet Take 5 mg by mouth as needed for Allergies. Active fluticasone propionate (FLONASE NASL) by Nasal route. Active sildenafiL (VIAGRA) 100 mg Oral Tablet TAKE 1 TABLET BY MOUTH NEEDED FOR SEXUAL ACTIVITY. ADMINISTER 30 MINUTES TO 4 HOURS BEFORE ACTIVITY 5 Active dilTIAZem 240 mg Oral Capsule, Sust. Release 24 hr Take 1 Capsule by mouth nightly. 90 Capsule 1 5 Active losartan (COZAAR) 50 mg Oral Tablet Take 1 Tablet by mouth nightly. 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 Lumbar pain 07/28/2022 Primary osteoarthritis of left knee 03/30/2022 Acute appendicitis with perf oration and generalized peritonitis, without abscess or gangrene 04/11/2021 Calculus of gallbladder with chronic cholecystitis without obstruction 03/23/2021 Overview (03/23/2021): Added automatically from request for surgery [id number] AF (atrial fibrillation) 09/06/2013 HTN (hypertension) 05/03/2013 HLD (hyperlipidemia) 05/03/2013 Family history of premature CAD 05/03/2013 Chest pain 06/11/2012 Encounters Date Type Department Care Team Description 11/22/2024 Results Follow-Up [facility] [place] [facility] [address] [address] Allyssa Marie MD HOLTER MONITOR RECORDING AND ANALYSIS 11/19/2024 9:51 AM EDT - 11/19/2024 11:59 PM EDT Hospital Encounter [facility] [address] [place] [address] [address] [place] [id number] Allyssa Marie MD Chronic atrial fibrillation (HCC); Primary hypertension; Mixed hyperlipidemia Discharge Disposition: Home or Self Care 11/13/2024 1:20 PM EDT Office Visit [facility] [place] [facility] [address] [address] Allyssa Marie MD Chronic atrial fibrillation (HCC) (Primary Dx); Primary hypertension; Mixed hyperlipidemia 10/31/2024 Telephone [facility] [place] [facility] [place] [address] [facility] [address] [place] [address] Afshan Palomino MD Appointment Needed 10/08/2024 1:15 PM EDT Office Visit [address] [id number] Handy Marie MD Primary osteoarthritis of both knees (Primary Dx) 09/18/2024 11:45 AM EDT Ancillary Procedure [address] [place] [address] Chapis Harris N, COAGULATOR Left knee pain, unspecified chronicity 09/18/2024 11:30 AM EDT Office Visit [facility] [address] [place] [address] Chapis Harris N, COAGULATOR Left knee pain, unspecified chronicity (Primary Dx); Primary osteoarthritis of both knees from Last 3 Months Surgical History Surgery Date Site/Laterality Comments HEMORRHOID SURGERY LAPAROSCOPIC APPENDECTOMY 04/11/2021 N/A laparoscopic appendectomy laparoscopic cholecystectomy; Surgeon: Lauren Horton MD; Location: [facility]; Service: General CHOLECYSTECTOMY, LAPAROSCOPIC 04/11/2021 N/A Surgeon: Lauren Horton MD; Location: [facility]; Service: General APPENDECTOMY Medical History Medical History Date Comments Hyperlipidemia Chest pain 2 prior negative stress tests Atrial fibrillation (HCC) Hypertension Cardiac dysrhythmia A fib Heartburn seldom, happens every couple months, no meds taken Irregular heart beat Family History Medical History Relation Name Comments Heart Disease Father [place] age 38; d age 76 d/t stroke High Blood Pressure Father Stroke Father Heart Disease Mother Relation Name Status Comments Brother Alive Father Mother Social History Tobacco Use Types Packs/Day Years [...] on file Sexual Orientation Not on file Obstetrics History Last Filed Vital Signs Vital Sign Reading Time Taken Comments Blood Pressure 118/84 11/13/2024 1:04 PM EDT Pulse 104 11/13/2024 1:04 PM EDT Temperature 36.4 C (97.6 F) 10/31/2021 10:46 AM EDT Respiratory Rate 14 10/31/2021 10:4 6 AM EDT Oxygen Saturation 98% 11/01/2023 8:30 AM EDT Inhaled Oxygen Concentration - - Weight 104.2 kg (229 lb 12.8 oz) 11/13/2024 1:04 PM EDT Height 175.3 cm (5' 9 ) 11/13/2024 1:04 PM EDT Body Mass Index 33.94 11/13/2024 1:04 PM EDT Plan of Treatment Upcoming Encounters Date Type Department Care Team (Late st Contact Info) Description 10/17/2025 10:10 AM EDT Office Visit [facility] [address] [address] Allyssa Marie MD [address] [place] [address] [address] [place] [place], [place] [id number] Health Maintenance Due Date Last Done Comments Wellness Exam Medicare 1948 Hepatitis C Screening 1965 DTaP/TDaP/Td (1 - Tdap) 08/25/1996 08/24/1996 Zoster (1 of 2) 1997 RSV or 60+ (1 - 1-dose 75+ series) 2022 COVID-19 Vaccine ( season) 2024 04/14/2022, 06/03/2021, 09/04/2020, Additional history exists Pneumococcal Vaccine 50+ Completed 05/30/2023, 11/2012 Influenza Vaccine Completed 04/04/2024, , 04/28/2022, Additional history exists Hepatitis B Vaccine Aged Out No longe r eligible based on patient's age to complete this topic Meningococcal B Vaccine Aged Out No l onger eligible based on patient's age to complete this topic Procedures Procedure Name Priority Date/Time Associated Diagnosis Comments HOLTER MONITOR RECORDING AND ANALYSIS Routine 11/19/2024 10:04 AM EDT Chronic atrial fibrillation (HCC) Primary hypertension Mixed hyperlipidemia POCT EKG Routine 11/13/2024 1:07 PM EDT Chronic atrial fibrillation (HCC) NM ARTHROCENTESIS LARGE JOINT W/O US BILATERAL Routine 10/08/2024 1:15 PM EDT Primary osteoarthritis of both knees XR KNEE LEFT AP LATERAL AND SUNRISE STANDING Routine 09/18/2024 11:50 AM EDT Left knee pain, unspecified chronicity from Last 3 Months Results * HOLTER MONITOR RECORDING AND ANALYSIS (11/19/2024 10:04 AM EDT) Anatomical Region Laterality Modality Holter/Event Mon itoring 11/22/2024 4:06 AM EDT Impressions 11/22/2024 8:00 AM EDT [facility] Test Date: 2024-11-22 Pat Name: [facility] Department: DEPID Room: Gender: Male Delicatessen Department Manager: : 1945 Requested By: ALLYSSA Venegas Order Number: [id number] Nelly MD: Allyssa Marie MD Interpretive Statements Wire Stitcher Machine Date: 11/19/2024 Referring Provider: Dr. Allyssa Marie MD Patient was monitored for 24 hours. INDICATIONS: Chronic Atrial Fibrillation, Unspecified CONCLUSION: Patient monitored for 1d, analyzable time was 21h 59min starting on 11/19/2024 10:03 am. Primary rhythm was Atrial Fibrillation / Flutter. Average heart rate was 84 bpm, Minimum heart rate was 64 bpm to 142 bpm Atrial Fibrillation or Flutter: Luckey was 100 %, Pause: 1 event(s), longest pause 2028 ms on Day :28:25 pm PVC(s): Luckey was 0.08 %, 86 total PVC(s), 3 disparate morphologies Electronically Signed On 11-22-2024 08:00:01 EDT by Allyssa Marie MD Narrative Procedure Note Allyssa Marie MD - 11/22/2024 IMPRESSION [facility] Test Date: 2024-11-22 Pat Name: [facility] Department: DEPID Room: Gender: Male Delicatessen Department Manager: : 1945 Requested By: ALLYSSA JOHNSTON Order Number: [id number] Nelly MD: Allyssa Marie MD Interpretive Statements Wire Stitcher Machine Date: 11/19/2024 Referring Provider: Dr. Allyssa Marie MD Patient was monitored for 24 hours. INDICATIONS: Chronic Atrial Fibrillation, Unspecified CONCLUSION: Patient monitored for 1d, analyzable time was 21h 59min starting on 11/19/2024 10:03 am. Primary rhythm was Atrial Fibrillation / Flutter. Average heart rate was84 bpm, Minimum heart rate was 64 bpm to 142 bpm Atrial Fibrillation or Flutter: Luckey was 100 %, Pause: 1 event(s), longest pause 2028 ms on Day :28:25 pm PVC(s): Luckey was 0.08 %, 86 total PVC(s), 3 [...] OF CARE CARDIOLOGY Final Result SEP OFFICE * NM ARTHROCENTESIS LARGE JOINT W/O US BILATERAL (10/08/2024 1:15 PM EDT) Narrative ORTHOCINCY - 10/08/2024 1:15 PM EDT Ignacio Frederick, MA 10/16/2024 8:54 AM Large Joint Injection/Arthrocentesis: [...] PROCEDURE/MINOR SURG ICAL ORDERABLES Final Result ORTHOCINCY * XR KNEE LEFT AP LATERAL AND SUNRISE STANDING (09/18/2024 11:50 AM EDT) Narrative ErosuserJace - 09/18/2024 11:50 AM EDT Please see physician's note from office encounter for x-ray imaging result us Chapis Harris COAGULATOR IMG DIAGNOSTIC IMAGING BETI KHANNA Final Result from Last 3 Months Insurance MEDICARE [place] PART A AND B [facility] SUPPLEMENTAL MEDICARE [place] [address] [place] [address] SUPPLE[place]AL MEDICARE [place] PART [place] B [place] SUPP[place] A [place] B SUPPLE[place]AL MEDICARE [place] PART A AND B MEDICARE [place] PART A & B Advance Directives For more information, please contact: [phone] * Full Code (Latest Code Status on File) Date Activated Date Inactivated Comments 04/11/2021 9:15 PM 04/13/2021 6:48 PM * Full Code Date Activated Date Inactivated Comments 04/11/2021 5:05 PM 04/11/2021 9:15 PM * Full Code Date Activated Date Inactivated Comments 01/28/2018 1:01 AM 01/29/2018 5:47 PM Care Teams Self Storage Manager Relationship Specialty Start Date End Date Lance Kang MD PCP - General 04/25/10
== END 2024-11-29 23:59 | disposition home or self-care (01) ==
LOC: LAB.DROPOF 11-30 23:13
PROVIDERS: PCP Family Medicine; Visit Provider Family Medicine
DX: I10 Essential (primary) hypertension (principal); Z12.5 Encounter for screening for malignant neoplasm of prostate
CPT/HCPCS: 80053; G0103